=== PATIENT | male | born 1985 | race Caucasian/White ===

== ENCOUNTER 2017-04-16 14:47 | Emergency (ER) | payer SELFPAY ==
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
[2017-04-16] MEDS ORDERED: Sodium Chloride 0.9% 10 ML Syringe FLUSH PRN (14:53)
[2017-04-16] MEDS ORDERED: Diphtheria,Pertussis(Acell),Tetanus Vaccine 0.5 ML SDV IM ONE (14:53)
[2017-04-16] MEDS ORDERED: Piperacillin/Tazobactam 3.375 GM in Sodium Chloride 0.9% 100 ML IV ONE (14:56)
[2017-04-16] MEDS ORDERED: Ondansetron 4 MG/2 ML SDV IV ONE (14:56)
[2017-04-16] MEDS ORDERED: HYDROmorphone 1 MG/ML Syringe IVPUSH ONE (14:56)
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
== END 2017-04-16 17:33 | disposition home or self-care (01) ==
LOC: DL.ED 14:47
DX: S62.511A Displaced fracture of proximal phalanx of right thumb, initial encounter for closed fracture (principal); Z88.1 Allergy status to other antibiotic agents; Z77.22 Contact with and (suspected) exposure to environmental tobacco smoke (acute) (chronic); X95.8XXA Assault by other firearm discharge, initial encounter; Z23 Encounter for immunization
CPT/HCPCS: 29125; 73140; 90471; 90715; 96365; 96375; 99285; J1170; J2405; J2543; J7050; 29130; 99284

== ENCOUNTER 2018-09-21 21:25 | Emergency (ER) | payer SELFPAY ==
[2018-09-21 21:52] VITALS: BP 168/90
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
[2018-09-22] MEDS ORDERED: Acetaminophen 325 MG Tab PO ONE (00:02)
== END 2018-09-22 00:08 | disposition home or self-care (01) ==
LOC: DL.ED 21:25
DX: S16.1XXA Strain of muscle, fascia and tendon at neck level, initial encounter (principal); S00.83XA Contusion of other part of head, initial encounter; Y04.0XXA Assault by unarmed brawl or fight, initial encounter; M53.3 Sacrococcygeal disorders, not elsewhere classified; F17.210 Nicotine dependence, cigarettes, uncomplicated; Z88.8 Allergy status to other drugs, medicaments and biological substances
CPT/HCPCS: 70450; 70486; 72125; 72220; 99284-25; A9270-GY

== ENCOUNTER 2020-07-20 20:18 | Emergency (ER) | payer MEDICAID ==
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
[2020-07-20 21:35] VITALS: BP 147/83; PULSE 89
== END 2020-07-20 21:34 | disposition home or self-care (01) ==
LOC: DL.ED 20:18
DX: S00.03XA Contusion of scalp, initial encounter (principal); F17.200 Nicotine dependence, unspecified, uncomplicated; Z88.1 Allergy status to other antibiotic agents; Y04.0XXA Assault by unarmed brawl or fight, initial encounter
CPT/HCPCS: 70450; 72125; 99284-25

== ENCOUNTER 2024-03-29 07:09 | Observation (INO) | payer MEDICAID ==
[2024-03-29] MEDS ORDERED: Sodium Chloride 0.9% 10 ML Syringe FLUSH PRN (07:27)
[2024-03-29 07:39] LABS: BASOPHILS PERCENT AUTO 0.2 % (0.0-1.0); EOSINOPHILS PERCENT AUTO 0.6 % (1.0-3.0); HEMATOCRIT 37.9 % (40.0-54.0); HEMOGLOBIN 12.3 g/dL (14.0-18.0); LYMPHOCYTES PERCENT AUTO 11.6 % (20.5-50.1); MEAN CORPUSCULAR HEMOGLOBIN 25.9 pg (27.0-34.0); MEAN CORPUSCULAR HGB CONC 32.5 g/dL (33.0-35.0); MEAN CORPUSCULAR VOLUME 79.8 fL (80-100); MONOCYTES PERCENT AUTO 3.1 % (2-8); NEUTROPHILS PERCENT AUTO 84.5 % (42.2-75.2); PLATELET COUNT,PLT 416 10^3/uL (150-450); RED BLOOD CELL COUNT 4.75 10^6/uL (4.6-6.2); WHITE BLOOD CELL COUNT,WBC 19.1 10^3/uL (5.0-10.0)
[2024-03-29 07:54] LABS: ANION GAP 14.5 mEq/L (7-13); BLOOD UREA NITROGEN,BUN 17 mg/dL (7-18); CALCIUM 8.4 mg/dL (8.5-10.1); CARBON DIOXIDE,CO2 25 mmol/L (21-32); CHLORIDE,CL 101 mmol/L (98-107); CREATININE 1.37 mg/dL (0.70-1.30); GLUCOSE RANDOM 235 mg/dL (70-99); POTASSIUM,K 4.5 mmol/L (3.5-5.1); SODIUM,NA 136 mmol/L (136-145)
[2024-03-29 07:55] LABS: ESTIMATED GFR 67 mL/min (>=60); ETHANOL BLOOD MEDICAL < 3 mg/dL (0)
[2024-03-29 08:11] LABS: PROTHROMBIN TIME 10.4 SEC (9.0-12.0); PTT,PARTIAL THROMBOPLSTIN TIME 21.3 SEC (22.0-34.0)
[2024-03-29] MEDS: MVI, Adult with Vitamin K 10 ML, Folic Acid 1 MG, Thiamine 100 MG in Lactated Ringers 1... IV ONE (08:31)
[2024-03-29] MEDS: Diphtheria,Pertussis(Acell),Tetanus Vaccine 0.5 ML Syringe IM ONE (08:36)
[2024-03-29] MEDS: Ondansetron 4 MG/2 ML SDV IVPUSH ONE (08:37)
[2024-03-29] MEDS ORDERED: Acetaminophen 325 MG Tab PO PRN (14:08)
[2024-03-29] MEDS ORDERED: Ondansetron 4 MG/2 ML SDV IVPUSH PRN (14:08)
[2024-03-29] MEDS ORDERED: HYDROmorphone 0.5 MG/0.5 ML Syringe IVPUSH PRN (14:08)
[2024-03-29] MEDS ORDERED: Dextrose 5%-0.45% NaCl 1,000 ML IV SCH (14:15)
[2024-03-30 05:55] LABS: AMPHETAMINES,URINE POSITIVE (NEGATIVE); BARBITURATES,URINE NEGATIVE (NEGATIVE); BENZODIAZEPINE,URINE NEGATIVE (NEGATIVE); MDMA (ECSTASY), URINE NEGATIVE (NEGATIVE); METHADONE,URINE NEGATIVE (NEGATIVE); METHAMPHETAMINES,URINE POSITIVE (NEGATIVE); OPIATES,URINE NEGATIVE (NEGATIVE); OXYCODONE,URINE NEGATIVE (NEGATIVE); PHENCYCLIDINE,URINE NEGATIVE (NEGATIVE); TCA,URINE NEGATIVE (NEGATIVE)
[2024-03-30 06:16] LABS: BASOPHILS PERCENT AUTO 0.4 % (0.0-1.0); EOSINOPHILS PERCENT AUTO 1.4 % (1.0-3.0); HEMOGLOBIN 10.2 g/dL (14.0-18.0); LYMPHOCYTES PERCENT AUTO 22.9 % (20.5-50.1); MEAN CORPUSCULAR HEMOGLOBIN 26.2 pg (27.0-34.0); MEAN CORPUSCULAR HGB CONC 32.9 g/dL (33.0-35.0); MEAN CORPUSCULAR VOLUME 79.5 fL (80-100); MONOCYTES PERCENT AUTO 6.5 % (2-8); NEUTROPHILS PERCENT AUTO 68.8 % (42.2-75.2); PLATELET COUNT,PLT 376 10^3/uL (150-450); WHITE BLOOD CELL COUNT,WBC 10.7 10^3/uL (5.0-10.0)
[2024-03-30 06:32] LABS: ANION GAP 11.2 mEq/L (7-13); CALCIUM 7.9 mg/dL (8.5-10.1); CREATININE 0.98 mg/dL (0.70-1.30); EST CRCL DRUG DOSING (CG) 103.46 mL/min; POTASSIUM,K 4.2 mmol/L (3.5-5.1)
[2024-03-30] MEDS: oxyCODONE 5 MG Tab PO PRN (09:30)
[2024-03-30] MEDS: methylPREDNISolone Sodium Succinate 125 MG/2 ML SDV IVPUSH ONE (12:01)
[2024-03-30] MEDS: Ketorolac 30 MG/ML SDV IM ONE (12:07)
[2024-03-30 12:13] VITALS: BP 139/72; PULSE 78
[2024-03-30] MEDS: methylPREDNISolone Sodium Succinate 125 MG/2 ML SDV IM ONE (12:27)
== END 2024-03-30 13:30 | disposition home or self-care (01) ==
LOC: DL.ED 07:09 → DL.MS 10:56
PROVIDERS: ADMIT Internal Medicine; ATTEND Internal Medicine
DX: T40.713A Poisoning by cannabis, assault, initial encounter (principal)
CPT/HCPCS: 36415; 70450; 70486; 71250; 72125; 74176; 80048; 80305; 80307; 85025; 85610; 85730; 86850; 86900; 86901; 90715; 96372; 99222; 99239; A9270; G0378; J1885; J2405; J2919; J3411; J7120; J3490